=== PATIENT | male | born 1960 | race Caucasian/White ===

== ENCOUNTER 2019-03-18 05:19 | Day surgery (SDC) | payer BC ==
[2019-03-18] MEDS ORDERED: LACTATED RINGER'S 1,000 ML IV (06:30)
[2019-03-18 07:01] LABS: ADD UMIC NO; UR ASCORBIC ACID 20 mg/dL (NEGATIVE); UR BILIRUBIN (Dip) NEGATIVE (NEGATIVE); UR BLOOD (Dip) NEGATIVE (NEGATIVE); UR CLARITY CLEAR (CLEAR); UR COLOR YELLOW (YELLOW); UR GLUCOSE (Dip) NEGATIVE (NEGATIVE); UR KETONES (Dip) NEGATIVE (NEGATIVE); UR LEUKOCYTE ESTERASE (Dip) NEGATIVE Leu/ul (NEGATIVE); UR NITRITE (Dip) NEGATIVE (NEGATIVE); UR SPECIFIC GRAVITY (Dip) 1.027 (1.003-1.030); UR TOTAL PROTEIN (Dip) NEGATIVE (NEGATIVE); UR UROBILINOGEN (Dip) NEGATIVE (NEGATIVE)
[2019-03-18] MEDS ORDERED: MIDAZOLAM 1 MG/ML 2 ML INJ (07:10)
[2019-03-18] MEDS ORDERED: ROPIVACAINE 0.5 % 30 ML VIAL ×2 (07:11→09:21)
[2019-03-18] MEDS: POLYMYXIN/BACITRACIN 1L IRRIG IRR (08:21)
[2019-03-18] MEDS ORDERED: NEOMYC/POLYMYX/BACIT 30 GM OINT (09:21)
[2019-03-18] MEDS ORDERED: POLYMYXIN/BACITRACIN 1L IRRIG (09:21)
[2019-03-18] MEDS ORDERED: ROCURONIUM 50 MG INJ (09:24)
[2019-03-18] MEDS ORDERED: PROPOFOL 20 ML (09:24)
[2019-03-18] MEDS ORDERED: ONDANSETRON 4 MG INJ ×2 (09:24→10:10)
[2019-03-18] MEDS ORDERED: LIDOCAINE 2% (SDV) 5 ML INJ (09:24)
[2019-03-18] MEDS ORDERED: NEOSTIGMINE 3 MG/3 ML SYRINGE (09:58)
[2019-03-18] MEDS ORDERED: GLYCOPYRROLATE 0.4 MG INJ (09:58)
[2019-03-18] MEDS ORDERED: MEPERIDINE 25 MG INJ (10:10)
[2019-03-18] MEDS ORDERED: SOD CHLORIDE 0.9% 1,000 ML IV (10:15)
[2019-03-18] MEDS: ONDANSETRON 4 MG INJ IV (10:18)
[2019-03-18] MEDS: MEPERIDINE 25 MG INJ IV (10:18)
[2019-03-18] MEDS: HYDROmorphONE 1 MG/5 ML IV SYRINGE IV ×3 (10:20→10:31)
[2019-03-18] MEDS ORDERED: NALOXONE (0.4 MG/ML) INJ IV (10:30)
[2019-03-18] MEDS ORDERED: OXYCODONE/ACETAMINOPHEN (5/325) TAB PO ×2 (10:30)
[2019-03-18] MEDS ORDERED: ONDANSETRON 4 MG INJ IV (10:30)
[2019-03-18] MEDS ORDERED: morphine 2 MG INJ IV (10:30)
[2019-03-18] MEDS ORDERED: FENTAnyl 50 MCG/ML VIAL IV (10:30)
[2019-03-18] MEDS ORDERED: DIPHENHYDRAMINE 50 MG INJ IV (10:30)
[2019-03-18] MEDS ORDERED: LABETALOL HCL 20MG INJ IV (10:30)
[2019-03-18] MEDS ORDERED: METOCLOPRAMIDE 10 MG INJ IV (10:30)
== END 2019-03-18 12:34 | disposition home or self-care (01) ==
LOC: SDS 05:19
DX: S86.011D Strain of right Achilles tendon, subsequent encounter (principal); X58.XXXD Exposure to other specified factors, subsequent encounter
CPT/HCPCS: 27650; 81003